=== PATIENT | female | born 1980 | race Two or more races ===

== ENCOUNTER 2024-12-26 10:58 | Emergency (ER) | payer OTHER ==
[~2024-12-26] VITALS: Ht 162.6 cm; Wt 59.9 kg
[2024-12-26] MEDS ORDERED: KETOROLAC TROMETHAMINE 30 MG VIAL ONE (12:12)
[2024-12-26] MEDS ORDERED: KETOROLAC TROMETHAMINE 30 MG VIAL IM ONE (12:15)
[2024-12-26 12:56] LABS: HEMATOCRIT 45.9 % (36.0-45.00); HEMOGLOBIN 15.8 g/dL (12.0-15.00); MEAN CELL VOLUME 85.7 fL (80.00-100.00); MEAN CORPUSCULAR HEMOGLOBIN 29.5 pg (27.00-32.0); MEAN CORPUSCULAR HGB CONC 34.4 g/dl (32.0-36.0); PLATELET COUNT 247 K/uL (150-450); RED BLOOD COUNT 5.35 M/uL (4.00-6.00); RED CELL DISTRIBUTION WIDTH 14.5 % (11.5-14.5)
[2024-12-26 13:12] LABS: CALCIUM 9.2 mg/dL (8.5-10.1); CREATININE SERUM 0.69 mg/dL (0.55-1.02); GFR 91.59; POTASSIUM 4.24 mEq/L (3.5-5.1)
== END 2024-12-26 15:43 | disposition home or self-care (01) ==
LOC: ER 11:01
PROVIDERS: General Practice
DX: R10.33 Periumbilical pain (principal)